=== PATIENT | female | born 1990 | race Two or more races ===

== ENCOUNTER 2020-11-20 13:34 | Emergency (ER) | payer OTHER ==
[~2020-11-20] VITALS: Ht 157.5 cm; Wt 77.3 kg
[2020-11-20 16:30] VITALS: BP 120/62
== END 2020-11-20 17:08 | disposition home or self-care (01) ==
LOC: EMS 13:40
DX: S61.213A Laceration without foreign body of left middle finger without damage to nail, initial encounter (principal); W26.0XXA Contact with knife, initial encounter; Y93.89 Activity, other specified; Y92.89 Other specified places as the place of occurrence of the external cause; Y99.8 Other external cause status
CPT/HCPCS: 12001; 99282; Z7502